=== PATIENT | female | born 1995 | race African-American/Black ===

== ENCOUNTER 2018-12-08 16:54 | Emergency (ER) | payer MEDICAID ==
[~2018-12-08] VITALS: Ht 165.1 cm; Wt 55.0 kg
[2018-12-08] MEDS ORDERED: PREDNISONE 20MG TABLET PO ONE (20:00)
[2018-12-08 20:05] VITALS: BP 117/68
== END 2018-12-08 21:01 | disposition home or self-care (01) ==
LOC: ER 16:54
DX: T65.891A Toxic effect of other specified substances, accidental (unintentional), initial encounter (principal); T20.52XA Corrosion of first degree of lip(s), initial encounter; Z98.890 Other specified postprocedural states; Y93.89 Activity, other specified; Y92.018 Other place in single-family (private) house as the place of occurrence of the external cause
CPT/HCPCS: 99283; J7512